=== PATIENT | male | born 1945 | race Caucasian/White ===

== ENCOUNTER 2019-05-23 11:24 | Emergency (ER) | payer OTHER ==
[~2019-05-23] VITALS: Ht 182.9 cm; Wt 101.3 kg
[2019-05-23 11:39] VITALS: Ht 182.9 cm; Wt 101.3 kg
[2019-05-23 13:35] LABS: BASOPHIL % 0.1 % (0-2); PLATELET COUNT 278 x10^3mcL (130-400)
[2019-05-23 14:04] LABS: RED CELL DISTRIBUTION WIDTH 14.7 % (11.5-14.5)
[2019-05-23 14:10] LABS: ALKALINE PHOSPHATASE 128 U/L (46-116); ALT/SGPT 24 U/L (16-63); AST/SGOT 14 U/L (15-37); BILIRUBIN TOTAL 0.5 mg/dL (0.20-1.00); CARBON DIOXIDE 24.7 mmol/L (21-32); CHLORIDE SERUM 98 mmol/L (98-107); CHOLESTEROL 165 mg/dL (<200); GLUCOSE SERUM 194 mg/dL (74-106); LIPASE 130 IU/L (73-393); MAGNESIUM 2.2 mg/dL (1.8-2.4); POTASSIUM SERUM 4.1 mmol/L (3.5-5.1); SODIUM SERUM 135 mmol/L (136-145); T4(THYROXINE) 8.1 ug/dL (4.7-13.3)
[2019-05-23 14:25] LABS: UA SPECIFIC GRAVITY >=1.030 (1.005-1.035); microscopic required? YES; urine erythrocyte TRACE (NEGATIVE)
[2019-05-23 14:39] LABS: AMPHETAMINE QUAL UR NONE DETECTED (See below)
[2019-05-23 15:06] LABS: ALBUMIN 4.6 g/dL (3.4-5.0); CALCIUM 9.4 mg/dL (8.5-10.1); CREATININE SERUM 1.2 mg/dL (0.7-1.3)
[2019-05-23 15:08] LABS: HDL CHOLESTEROL 71 mg/dL (40-60); TOTAL PROTEIN, SERUM 9.2 g/dL (6.4-8.2)
[2019-05-23 16:49] VITALS: BP 145/86
== END 2019-05-23 16:49 | disposition home or self-care (01) ==
LOC: ED 11:24
PROVIDERS: Emergency Medicine
DX: K59.00 Constipation, unspecified (principal); K80.20 Calculus of gallbladder without cholecystitis without obstruction; N21.0 Calculus in bladder; N40.0 Benign prostatic hyperplasia without lower urinary tract symptoms; E11.9 Type 2 diabetes mellitus without complications; I10 Essential (primary) hypertension
CPT/HCPCS: 36415; 82962; G0480; J7030